=== PATIENT | male | born 1960 | race Caucasian/White ===

== ENCOUNTER 2022-10-13 06:01 | Observation (INO) ==
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
[~2022-10-13 06:01] MED LIST: HEPARIN SOD 5,000 UNIT/0.5 ML VIAL SQ ONE; LR 15ML/HR IV SCH; ceFAZolin 2000MG 2,000 MG/15 ML SYR IV SCH
[2022-10-13] MEDS ORDERED: NEOSTIGMINE METHYLSULFATE 1 MG/ML 10ML VIAL ONE (06:59)
[2022-10-13] MEDS ORDERED: GLYCOPYRROLATE 0.2 MG/ML VIAL ONE (06:59)
[2022-10-13] MEDS ORDERED: PROPOFOL IV EMULSION 10 MG/ML 20 ML VIAL IV ONE (06:59)
[2022-10-13] MEDS ORDERED: ROCURONIUM BROMIDE 10 MG/ML 5 ML VIAL IV ONE (06:59)
[2022-10-13] MEDS ORDERED: DEXAMETHASONE SOD INJ 4 MG/ML VIAL ONE (06:59)
[2022-10-13] MEDS ORDERED: ONDANSETRON INJ 2 MG/ML 2 ML VIAL ONE (06:59)
[2022-10-13] MEDS ORDERED: LIDOCAINE 2% MPF LOCAL 5 ML VIAL INFIL ONE (06:59)
[2022-10-13] MEDS ORDERED: fentaNYL citrate 100 MCG/2 ML VIAL ONE (07:00)
[2022-10-13] MEDS ORDERED: MIDAZOLAM HCL 1 MG/ML 2ML VIAL ONE (07:00)
[2022-10-13] MEDS ORDERED: BELLADONNA/OPIUM SUPP 60 MG SUPP PR ONE ×2 (07:00→09:03)
[2022-10-13] MEDS ORDERED: PROMETHAZINE HCL 6.25 MG in SODIUM CHLORIDE 0.9% 50 ML IV PRN (07:14)
[2022-10-13] MEDS ORDERED: ONDANSETRON INJ 2 MG/ML 2 ML VIAL IV PRN ×2 (07:14→12:39)
[2022-10-13] MEDS ORDERED: HYDROmorphone INJ 2 MG/ML SYR/VIAL IV PRN (07:14)
[2022-10-13] MEDS ORDERED: ePHEDrine sulfate 50 MG/ML AMP IV PRN (07:14)
[2022-10-13] MEDS ORDERED: ATROPINE SULFATE 0.1 MG/ML 10ML SYR IV PRN (07:14)
[2022-10-13] MEDS ORDERED: BUPIVACAINE 0.5 % 5 MG/1 ML MPF 30ML VIAL ONE (07:17)
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
--- NOTE | 2022-10-13 07:22 | History & Physical Bridge Note ---
Date of Service October 13, 2022 History & Physical Bridge Note I have examined the patient, reviewed the History & Physical and in the interval since the performance of the History & Physical I have noted the following changes of clinical significance: no changes noted
[2022-10-13] MEDS ORDERED: SUGAMMADEX SODIUM 200 MG/2 ML VIAL IV ONE (07:25)
[2022-10-13] MEDS ORDERED: ePHEDrine sulfate 50 MG/ML AMP ONE (08:30)
[2022-10-13] MEDS ORDERED: HYDROmorphone INJ 2 MG/ML SYR/VIAL ONE (08:31)
[2022-10-13] MEDS ORDERED: hydrALAZINE HCL 20 MG/ML VIAL ONE (08:53)
[2022-10-13] MEDS ORDERED: SURGICEL ABSORB HEMOSTAT 2IN X 14IN TOP ONE (09:02)
[2022-10-13] MEDS ORDERED: FLOSEAL HEMOSTATIC MATRIX 10ML TOP ONE (09:02)
[2022-10-13] MEDS: fentaNYL citrate 100 MCG/2 ML VIAL IV PRN ×2 (11:36→11:58)
[2022-10-13 11:39] LABS: Hematocrit (blood only) 42.3 % (40.1-51.0); Hemoglobin 14.6 g/dl (14.0-18.0); Mean Corpuscular Hemoglobin 29.4 pg (25.0-34.0); Mean Corpuscular Hgb Conc 34.5 g/dL (32.0-36.0); Mean Corpuscular Volume 85.1 fL (80.0-100.0); Mean Platelet Volume 10.2 fL (9.4-12.4); Platelet Count 326 K/uL (130-400); RDW Coefficient of Variation 12.4 % (11.5-14.5); RDW Standard Deviation 38.2 fL (36.4-46.3); Red Blood Count 4.97 M/uL (4.63-6.08); White Blood Count 17.21 K/ul (4.8-10.8)
[2022-10-13 11:57] LABS: Basophils # (auto) 0.05 K/uL (0-0.2); Basophils % (auto) 0.3 %; Echinocytes 1+; Eosinophils # (auto) 0.01 K/uL (0-0.50); Eosinophils % (auto) 0.1 %; Immature Granulocytes # (auto) 0.09 K/uL (0.00-0.02); Immature Granulocytes % (auto) 0.5 %; Lymphocytes # (auto) 0.99 K/uL (1.2-3.4); Lymphocytes % (auto) 5.8 %; Monocytes # (auto) 0.17 K/uL (0.24-0.82); Neutrophils % (auto) 92.3 %
[2022-10-13 12:17] LABS: BUN Creatinine Ratio 14.4 (10-20); Calcium 8.6 mg/dl (8.5-10.1); Creatinine Clr Calc Pharmacy 77.3 ml/min; Est GFR (African American) 88.8 ml/min; Est GFR (Non-African American) 76.6 ml/min; Potassium 3.6 mmol/L (3.5-5.1)
[2022-10-13] MEDS ORDERED: MoRPHine SULFATE 4 MG/ML 1 ML CARP\\VIAL IV PRN (12:39)
[2022-10-13] MEDS ORDERED: MoRPHine SULFATE 2 MG/ML CARP IV PRN (12:39)
[2022-10-13] MEDS ORDERED: oxyCODONE HCL IR 5 MG TAB (IMMEDIATE RELEASE) PO PRN ×2 (12:39)
[2022-10-13] MEDS ORDERED: ACETAMINOPHEN 325 MG TAB PO PRN (12:39)
[2022-10-13] MEDS: LACTATED RINGER'S 1,000 ML IV SCH ×2 (13:09→20:48)
--- NOTE | 2022-10-13 14:24 | Anesthesiology Progress Note ---
Date of Service October 13, 2022 Anesthesia Post Procedure Vital Signs Vital Signs: Temp Pulse Pulse Resp BP Pulse Ox O2 Del Method 10/13/22 13:35 36.8 C 96 H 16 114/69 94 Nasal Cannula 10/13/22 12:30 37.2 C 100 H 16 105/64 92 Nasal Cannula 10/13/22 13:05 36.8 C 16 110/66 94 Nasal Cannula 10/13/22 12:10 36.6 C 97 H 19 117/72 93 Nasal Cannula 10/13/22 11:50 90 14 122/75 93 Nasal Cannula 10/13/22 11:40 91 H 20 118/75 94 Nasal Cannula 10/13/22 12:00 90 18 115/70 94 Nasal Cannula 10/13/22 11:30 93 H 23 117/74 94 Nasal Cannula 10/13/22 11:20 91 H 15 120/76 93 Nasal Cannula 10/13/22 11:10 89 16 115/74 95 Oxymask 10/13/22 11:00 91 H 18 112/73 95 Oxymask 10/13/22 10:56 36.5 C 98 H 18 108/68 96 Oxymask 10/13/22 06:27 36.6 C 75 20 129/92 99 Room Air O2 Flow Rate 10/13/22 13:35 2 10/13/22 12:30 2 10/13/22 13:05 2 10/13/22 12:10 2 10/13/22 11:50 2 10/13/22 11:40 2 10/13/22 12:00 2 10/13/22 11:30 2 10/13/22 11:20 2 10/13/22 11:10 5 10/13/22 11:00 5 10/13/22 10:56 5 10/13/22 06:27 Pain Intensity Abdomen: Pain Intensity: 1 Transfer of Care Handoff Completed per policy Notes Mental Status: alert / awake / arousable and participated in evaluation Patient Amnestic to Procedure: Yes Nausea / Vomiting: adequately controlled Pain: adequately controlled Airway Patency, RR, SpO2: stable & adequate BP & HR: stable & adequate Hydration State: stable & adequate Anesthetic Complications: no major complications apparent and Pt Satisfied with anesthetic care
--- NOTE | 2022-10-13 15:41 | Operative Report ---
PG Post Operative Report Pre & Post Diagnosis Operation Date: 10/13/22 07:30 Pre-Op Diagnosis: Prostate Cancer Post-Op Diagnosis: Prostate Cancer I identified the patient and participated in the time-out.: Yes Procedure Operation Date: 10/13/22 07:30 Actual Procedures p Robotic Laparoscopic Assisted Radical Retropubic Prostatectomy and Bilateral Pelvic Lymph Node Dissection (Not Applicable) - Chandler Baker MD Surgeon Chandler Baker MD Biztalk Developer Dr. Maxwell Cuevas; Cathryn Lechuga Estimated Blood Loss 50 Findings Consistent with Post-Op Diagnosis Specimens 1. Periprostatic fat 2. Right pelvic lymph nodes 3. Left pelvic lymph nodes 4. Prostate and seminal vesicles 5. Bladder neck margin Description of Procedure The patient was identified in the preoperative holding area, appropriate informed consents were reviewed and completed, and he was transported to the operating suite. Subcutaneous heparin was administered in the pre-operative holding area. Upon arrival in the operating suite, he received appropriate antibiotics and general anesthesia. He was positioned in dorsal lithotomy, a B&O suppository was inserted after digital rectal exam, and he was prepped and draped in standard fashion. A Cardenas catheter was inserted in the sterile field. A Veress needle was passed per umbilicus with uniform insufflation of the abdomen to 15mmHg. He was placed in steep Trendelenburg position. A periumbilical incision was then made to accommodate a 12mm Visiport with 10mm 0degree laparoscope. Inspection of the abdomen was carried out, and there was no evidence of traumatic entry or injury secondary to the Veress needle. Of note, there was some adhesions from prior surgeries including a prior right inguinal hernia repair as well as an open appendectomy. Laparoscopic lysis of adhesions was performed prior to completion of the docking of the robot and placement of the ports. To begin the robotic portion of the case, the left lateral aspect of the sigmoid was mobilized off of the left pelvic side wall to allow the pouch of Rashi to be appropriately visualized. I then made an incision in the pouch of Rashi, overlying the seminal vesicles. Both SVs as well as the ampullae of the vasa were entirely dissected, with the vasa transected 3cm from the prostate. The medial umbilical ligaments were then controlled with bipolar electrocautery just inferior to the umbilicus. Following cauterization, they were divided utilizing monopolar cautery. A peritoneal incision was carried from this location to the medial aspect of the internal inguinal rings bilaterally with care to avoid opening through the ring. This incision was concluded when the vas deferens was reached. Dissection of the bladder and prostate off of the posterior aspect of the pubic arch was completed allowing full visualization of the prostate. The fat overlying the prostate was removed en bloc and passed off the table as a specimen labeled "periprostatic fat". The endopelvic fascia was cleared during this portion of the procedure, and subsequently opened - first on the right and then the left. The incision through the endopelvic fascia began near the prostate-bladder junction and was carried to the apex with extreme care to preserve all lateral levator musculature as well as the periurethral muscul ature and sphincter complex. I additionally preserved the puboprostatic ligaments. I then controlled the DVC with a 3-0 V-lock suture in overlapping/figure of 8 fashion. The lymph node dissection was then conducted. External iliac vessels were identified on the pelvic side wall. The packet of fat and lymphatic tissue that resides just under the iliac vein was elevated and off of the vein with a split and roll technique. The packet was dissected laterally to the circumflex vein and distally to the obturator nerve which was preserved. The proximal aspect of the packet was carried towards the bifurcation of the iliac vessels. A combination of monopolar and bipolar cautery were used to assist with control. After completing the dissection on both sides, the packets were collected and passed off of the table as specimens labeled "pelvic lymph nodes". My attention then returned to the prostate, with identification of the bladder neck aided by gentle traction on the Cardenas catheter and lateral to medial pressure at the presumed level of the bladder neck with the robotic instruments. An anterior cystotomy was made, the Cardenas balloon deflated and the catheter guided through the incision to allow anterior retraction. I attempted to preserve maximal bladder neck musculature as I circumferentially dissected around the bladder neck. After incision through the posterior aspect of the mucosa, the dissection was carried through detrusor muscle until the bilateral ampullae of the vasa were identified. The previously dissected vasa and SVs were brought through the incision and used to elevated the prostate anteriorly. A posterior plane behind the prostate was then developed - splitting Denonvilliers's fascia. This dissection was carried as far as possible towards the apex as well as far as possible laterally. An incision in the lateral prostatic fascia was then made bilaterally to facilitate control of the vascular pedicles and preservation of the nerve bund les. Vasculature running along the posterior/lateral aspect of the prostate was preserved as well as the tissue containing the nerves. The pedicles were then controlled with a series of Weck clips. The apical attachments of the prostate were remaining at that stage. The DVC was divided after control with bipolar cautery over the prostate. Continuous inspection from anterior and lateral views allowed me to closely follow the apical contour of the prostate and maximally preserve urethral length and tissue. The prostate was entirely freed at that point, and collected in an EndoCatch bag before being moved out of the field of vision. Hemostasis was confirmed and anastomosis of the bladder and urethra was completed utilizing a double armed V- Lock stitch. A new Cardenas catheter was inserted and the anastomosis tested with irrigation. There was no evidence of leak. There was a very small amount of redundant bladder neck tissue which I resected I passed off the table as a specimen labeled bladder neck marginthis margin was not collected because of concern for cancer but simply because it was a bit of redundant tissue that was best dealt with with an easy resection.A brad style stitch was placed bilaterally to functionally marsupialize the area of the lymph node dissection. The robot was undocked, the specimen extracted through expansion of the nunu- umbilical camera port. The fascia was closed with a series of 0-PDS figure of 8 stitches. The right social human services assistants port was closed in two layers - with a figure of 8 0-Vicryl to reapproximate the fascia followed by 4-0 Monocryl to close the skin. Monocryl was used to close all other skin incisions. All wounds were dressed with Dermabond. The case was concluded and the patient taken to the PACU in stable condition. Maxwell Cuevas assisted with port placement and docking of the robot as well as mobilization of the bladder. Cathryn Lechuga assisted with all other aspects of the case from beginning to finish. I attest to the content of the Intraoperative Record and any orders documented therein. Any exceptions are noted below.
[2022-10-13] MEDS: ceFAZolin 2000MG 2,000 MG/15 ML SYR IV SCH ×2 (16:36→22:41)
[2022-10-13] MEDS: HEPARIN SOD 5,000 UNIT/0.5 ML VIAL SQ SCH (20:44)
[2022-10-13] MEDS: DOCUSATE SODIUM 100 MG CAP PO SCH (20:44)
[2022-10-13] MEDS: KETOROLAC TROMETHAMINE 15 MG/ML VIAL IV PRN (20:44)
[2022-10-14] MEDS: KETOROLAC TROMETHAMINE 15 MG/ML VIAL IV PRN (03:08)
--- NOTE | 2022-10-14 07:18 | Urology Progress Note ---
Date of Service October 14, 2022 Assessment & Plan (1) Prostate cancer: Plan 62-year-old male with a history of prostate cancer status post robotic prostatectomy with bilateral pelvic lymph node dissection on 10/13/2022 Recovering as expected Continue pain regimen Maintain clear liquid diet. Patient declined regular diet. Follow-up morning labs Maintain Cardenas catheter Anticipate discharge home later today Admission and Anticipated Discharge Date Admission Date: October 13, 2022 Subjective No acute issues overnight. Afebrile with stable vitals. Pain well controlled. Tolerating clear diet. Ambulating without issue. Review of Systems Review of Systems: 14 point review of systems negative outside of what is listed above in HPI Physical Exam Physical Exam: General: Alert and oriented, no acute distress HEENT: Normocephalic, mucous membranes moist Pulmonary: Nonlabored respirations Abdomen: Nondistended, soft, appropriately tender. Port sites clean dry and intact. : Cardenas catheter draining clear yellow urine. Extremities: Moves all 4 spontaneously Neuro: No gross deficits Skin: Warm, dry, no rashes noted Results & Data ([facility]) Vital Signs (Past 12 Hours) Vital Signs Temp Pulse Resp BP Pulse Ox O2 Del Method 10/14/22 04:15 36.9 C 93 H 16 127/80 94 Room Air 10/13/22 23:56 37.5 C 100 H 16 131/76 93 Room Air 10/13/22 19:38 37.1 C 96 H 20 154/85 H 96 Room Air PG Care Time/CCT Total # of Minutes Spent Total Time Spent with Patient: Total time spent is greater than 50% in coordination of care (as documented) at patient's floor/unit and/or counseling patient: Coding Level of Care Code 93591 Subseq Hosp Care Lvl 2 Diagnoses Prostate cancer C61
[2022-10-14 07:52] LABS: Basophils # (auto) 0.02 K/uL (0-0.2); Basophils % (auto) 0.2 %; Hematocrit (blood only) 38.7 % (40.1-51.0); Hemoglobin 13.4 g/dl (14.0-18.0); Immature Granulocytes # (auto) 0.04 K/uL (0.00-0.02); Immature Granulocytes % (auto) 0.4 %; Lymphocytes # (auto) 1.17 K/uL (1.2-3.4); Lymphocytes % (auto) 11.6 %; Mean Corpuscular Hemoglobin 29.6 pg (25.0-34.0); Mean Corpuscular Hgb Conc 34.6 g/dL (32.0-36.0); Mean Corpuscular Volume 85.4 fL (80.0-100.0); Mean Platelet Volume 10.2 fL (9.4-12.4); Monocytes # (auto) 0.94 K/uL (0.24-0.82); Monocytes % (auto) 9.3 %; Neutrophils # (auto) 7.93 K/uL (1.4-6.5); Neutrophils % (auto) 78.5 %; Platelet Count 242 K/uL (130-400); RDW Coefficient of Variation 12.3 % (11.5-14.5); RDW Standard Deviation 38.5 fL (36.4-46.3); Red Blood Count 4.53 M/uL (4.63-6.08)
--- NOTE | 2022-10-14 08:05 | Discharge Summary ---
Date of Service October 14, 2022 Admission HPI Per Admitting Provider 62-year-old male with elevated PSA as high as 6.1 and an MRI showing a PI-RADS 3 lesion and a 38 g gland. He underwent MRI fusion guided biopsy on 07/27/2022 which showed the following pathology: A. Prostate, left base, biopsy: - Acinar Adenocarcinoma, Prognostic Grade Group 1 (Reg score 3 + 3 = 6) - Tumor involves 15% of a 1.4 cm core. - Tumor involves 60% of a 1.3 cm core. B. Prostate, right base, biopsy: - Acinar Adenocarcinoma, Prognostic Grade Group 1 (Bradley score 3 + 3 = 6) - Tumor involves 20% of a 1.7 cm core. - Tumor involves 85% of a 1.9 cm core. C. Prostate, left mid, biopsy: - Acinar Adenocarcinoma, Prognostic Grade Group 2 (Bradley score 3 + 4 = 7) - Percentage of Pattern 4: 10% of tumor. - No cribriform pattern identified. - Tumor involves 25% of a 1.4 cm core. - Tumor involves 20% of a 1.4 cm core. D. Prostate, right mid, biopsy: - Acinar Adenocarcinoma, Prognostic Grade Group 2 (Bradley score 3 + 4 = 7) - Percentage of Pattern 4: 15% of tumor. - No cribriform pattern identified. - Tumor involves 15% of a 1.7 cm core. - Tumor involves 45% of a 1.6 cm core. E. Prostate, left apex, biopsy: - Acinar Adenocarcinoma, Prognostic Grade Group 2 (Bradley score 3 + 4 = 7) - Percentage of Pattern 4: 20% of tumor. - No cribriform pattern identified. - Tumor involves 10% of a 1.5 cm core. F. Prostate, right apex, biopsy: - Acinar Adenocarcinoma, Prognostic Grade Group 1 (Reg score 3 + 3 = 6) - Tumor involves 10% of a 1.5 cm core. - Tumor involves 5% of a 1.8 cm core. G. Prostate, left pyrads, biopsy: - Acinar Adenocarcinoma, Prognostic Grade Group 1 (Bradley score 3 + 3 = 6) - Tumor involves 25% of a 1.5 cm core. - Tumor involves 50% of a 0.4 cm fragment. This places him in the favorable, intermediate risk category. He does not have any incontinence nor erectile dysfunction. He had an appendectomy 40 years ago but otherwise no abdominal surgeries. He has no smoking history. He does have a half brother with a history of prostate cancer. Admission Exam Per Admitting Provider General: Alert and oriented, no acute distress HEENT: Normocephalic, mucous membranes moist Pulmonary: Nonlabored respirations Abdomen: Nondistended Extremities: Moves all 4 spontaneously Neuro: No gross deficits Skin: Warm, dry, no rashes noted Principal Diagnosis Prostate cancer Discharge Exam General: Alert and oriented, no acute distress HEENT: Normocephalic, mucous membranes moist Pulmonary: Nonlabored respirations Abdomen: Nondistended, soft, appropriately tender. Port sites clean dry and intact : Cardenas catheter draining clear urine. Extremities: Moves all 4 spontaneously Neuro: No gross deficits Skin: Warm, dry, no rashes noted Discharge Data Allergies Allergy/AdvReac Type Severity Reaction Status Date / Time No Known Allergies Allergy Verified 10/13/22 06:22 Procedures Performed Operation Date: 10/13/22 07:30 Actual Procedures p Robotic Laparoscopic Assisted Radical Retropubic Prostatectomy and Bilateral Pelvic Lymph Node Dissection (Not Applicable) - Chandler Baker MD Hospital Course (1) Prostate cancer: 62-year-old male who is status post robotic prostatectomy on 10/13/2022. Transferred to floor in stable condition. Postop labs were stable outside of mild leukocytosis. This resolved on postop day 1. His pain was well controlled. Catheter draining without issue. He tolerated clear liquid diet. He ambulated without issue. Deemed medically stable for discharge on postop day 1. Total Time Total Time Spent Total Time Spent (In Minutes): 10 Discharge Plan Discharge Items Patient Disposition: Home - Self-Care Reason For Visit: Prostate Cancer Discharge Diagnosis: Prostate cancer Activity: Per Instructions section Lifting: No more than 10 pounds Bathing: No limitations Bathing Comment: Can shower, no bathing or hot tubs Sexual Activity: Wait until after follow-up appointment Exercise/Sports: None Driving/Machine Use: Resume 1 day after discharge Weightbearing: Full weightbearing Non-emergency contact: Urologist Call non-emergency contact if: you have any medication questions, your pain is worsening, your temperature is above 101, your wound has increased redness, your wound has increased drainage and your wound pain has increased Follow-up/Referrals: Antonio Dubose MD [Primary Care Provider] - Diet: Regular Addtl Attending Provider Instructions: Please take all medications as prescribed and keep follow-ups as scheduled. Please call our office at [phone] with any questions, concerns or need to reschedule appointments for any reason. We are happy to assist you. While catheter is in place, please wash with warm soapy water and a fresh washcloth twice a day with mild bar soap (Dove, Dial, etc.). Your nursing visit appointment to have your catheter removed should already be made, if you have any question regarding this, please call our office. Please take tylenol and motrin as needed for pain control. For breakthrough pain, take oxycodone as needed. You will be discharged home with a stool softener (colace) and a medication to help with catheter discomfort (oxybutyin). This may cause dry eyes, dry mouth, and constipation so only take as needed. It is okay to take AZO (available over the counter) as needed for a few days to relieve burning with urination. This may cause your urine or feces to turn an orangish-color. This is expected. The only exception is if you have been prescribed Pyridium (phenazopyridine), this is the same medication and should not take AZO be taken in addition to prescription version. Some blood is to be expected in your urine as you heal, you may even see recurrences of blood in your urine for up to 4-6 months after your procedure. Drink plenty of fluids, avoid sexual or strenuous exercise and do not lift >25 pounds until your follow-up. Call [facility] [place] [facility] at [phone] promptly if you experience: Fever of 101F or greater Pain thats not controlled with medicine Trouble urinating or inability to urinate Dark, bloody urine for more than 12 hours Restart aspirin 7 days from the day of your surgery. Pending Studies at Discharge: Yes Studies:: Pathology Stand-Alone Forms: [employer], Smoking Cessation Medications and DC Order Prescriptions: New oxycodone 5 mg tablet 5 mg PO Q6H PRN (Reason: pain) Qty: 10 0RF docusate sodium [Col-Rite] 100 mg capsule 100 mg PO BID Qty: 20 0RF oxybutynin chloride [Ditropan XL] 5 mg tablet extended release 24hr 5 mg PO DAILY Qty: 7 0RF Rx Instructions: as needed for catheter discomfort Continued lisinopril 20 mg Tablet 20 mg PO QAM amlodipine 2.5 mg Tablet 2.5 mg PO QAM aspirin 81 mg Capsule 81 mg PO QAM Discontinued amoxicillin-pot clavulanate 875-125 mg tablet 1 tab PO BID Qty: 6 0RF Discharge Orders: Discharge Order (Routine); Ordered 10/14/22 Ordered By: Maxwell Camarillo/Other Patient Handouts: Indwelling Urinary Catheter Dc Admission Data Admit Date/Time: 10/13/22 12:37 Attending Provider: Chandler Baker Admit Provider: Chandler Baker Primary Care Provider: Antonio Dubose Other Interventions: Discharge Summary Assessment (RN) Last Done: 10/14/22 08:59 Coding Level of Care Code D/C DAY MANAGEMENT <30 MINS Diagnoses Prostate cancer C61
[2022-10-14] MEDS: DOCUSATE SODIUM 100 MG CAP PO SCH (08:08)
[2022-10-14] MEDS: HEPARIN SOD 5,000 UNIT/0.5 ML VIAL SQ SCH (08:10)
[2022-10-14 08:16] LABS: BUN Creatinine Ratio 16.5 (10-20); Calcium 8.2 mg/dl (8.5-10.1); Creatinine Clr Calc Pharmacy 94.6 ml/min; Est GFR (African American) 108.2 ml/min; Est GFR (Non-African American) 93.4 ml/min; Potassium 3.9 mmol/L (3.5-5.1)
[2022-10-14] MEDS ORDERED: amLODIPine BESYLATE 5 MG TAB PO SCH (09:00)
[2022-10-14] MEDS ORDERED: lisinopril 20 MG TAB PO SCH (09:00)
== END 2022-10-14 11:00 | disposition home or self-care (01) ==
LOC: ASU 06:01 → 3W 12:37 → INTOOBSV 12:37